=== PATIENT | female | born 1960 | race Caucasian/White ===

== ENCOUNTER → 2025-07-03 14:49 | Outpatient (REF) | payer BC, SELFPAY | LOC: WDC 14:49 | PROVIDERS: ATTENDING PHYSICIAN Obstetrics & Gynecology Gynecology; FAMILY PHYSICIAN Internal Medicine | DX: Z12.31 Encounter for screening mammogram for malignant neoplasm of breast (principal) | CPT/HCPCS: 77063; 77067 ==

== ENCOUNTER → 2025-09-24 12:48 | Outpatient (REF) | payer BC, SELFPAY | LOC: WDC 12:48 | PROVIDERS: ATTENDING PHYSICIAN Obstetrics & Gynecology Gynecology; FAMILY PHYSICIAN Internal Medicine | DX: R92.30 Dense breasts, unspecified (principal) | CPT/HCPCS: 76641 ==